=== PATIENT | male | born 1965 | race Caucasian/White ===

== ENCOUNTER 2017-05-16 08:57 | Outpatient (CLI) | payer BC ==
--- NOTE | 2017-05-16 14:02 | RAD ---
DOUBLE CONTRAST ESOPHAGRAM: Date: 05/16/17 INDICATION: History of dysphagia, R13.10. TECHNIQUE: Thin barium, thick barium, and effervescent crystals were utilized for a double esophagram. Total flu oroscopic time was 1.4 minutes. Total exposure of 19.325 Gy*cm^2. FINDINGS: No definite intraluminal mucosal abnormality is evident. No ulcerations are evident. No stricture is demonstrated. There are a few tertiary contractions involving the distal esophagus. There was a singl e episode of mild gastroesophageal reflux noted with the patient supine to the level of the lower tho racic spine. No additional reflux episodes were detected with Valsalva maneuvers. The visualized noel nellie fundus appears within normal limits. The 12.5 mm barium tablet passed without difficulty. No hiat al hernia was seen. IMPRESSION: 1. Mild gastroesophageal reflux. 2. Mild tertiary contractions of the mid to distal esophagus can be seen with esophagitis. 3. No definite intraluminal esophageal mucosal abnormality or stricture is identified. POS: KJ
== END 2017-05-16 08:58 | disposition home or self-care (01) ==
LOC: RAD 08:57
PROVIDERS: ATTEND Specialist
DX: R13.10 Dysphagia, unspecified (principal); K21.0 Gastro-esophageal reflux disease with esophagitis
CPT/HCPCS: 74220

== ENCOUNTER 2019-02-12 15:44 | Outpatient (CLI) | payer BC ==
--- NOTE | 2019-02-12 16:36 | MRI ---
MRI lumbar spine noncontrast HISTORY: Low back pain. Left leg radiculopathy. Findings: Radiographs not available for direct correlation. Transitional vertebra is present at the l umbosacral junction and, for the purposes of this exam, will be designated as the first sacral level. This places the normal-appearing conus medullaris at L1. Vertebral body heights and alignment are maintained. Mild discogenic endplate changes are within the bone marrow. Sacroiliac joints are not included. T12-L1, L1-2, L2-3: Osteophytosis of the facets. No significant central canal or foraminal stenosis. L3-4: Thecal sac is patent. Prominent osseous hypertrophy of the facets. There is moderate right and moderate to severe left foraminal stenoses. L4-5: Mild posterior disc bulge. Degenerative changes of the facets and posterior ligamentous thicken ing. Mild stenosis of the central canal. Mild stenosis of each neural foramen. L5-S1: Minimal disc bulge. Prominent posterior ligamentous thickening and facet joint hypertrophy. Mo derate stenosis of the central canal. Moderate right and severe left foraminal stenoses. IMPRESSION: Degenerative changes lower lumbar spine as detailed above, with stenoses greatest at the left neural foramina at the lumbosacral junction and the L3-4 level. Clinical correlation regarding the left L5 dermatome is required.
--- NOTE | 2019-02-12 16:52 | RAD ---
Exam: 2 views lumbar spine HISTORY: Sacroiliac inflammation. FINDINGS: 5 lumbar type vertebra. Lumbar spine vertebral body height is maintained. No fracture. No s pondylolisthesis or spondylolysis. Preservation of disc space heights. IMPRESSION: Unremarkable 2 view lumbar spine radiograph.
== END 2019-02-12 15:45 | disposition home or self-care (01) ==
LOC: TBSIIMAG 15:44
PROVIDERS: ATTEND Family Medicine
DX: M46.1 Sacroiliitis, not elsewhere classified (principal); M54.32 Sciatica, left side; M47.816 Spondylosis without myelopathy or radiculopathy, lumbar region; M48.061 Spinal stenosis, lumbar region without neurogenic claudication
CPT/HCPCS: 72100; 72148

== ENCOUNTER 2019-05-01 10:29 | Emergency (ER) | payer BC ==
--- NOTE | 2019-05-01 11:50 | RAD ---
XR Foot Rt 3 View STANDARD HISTORY: Injury, right foot pain FINDINGS: There are minimally displaced fractures involving the base of the fifth metatarsal.
--- NOTE | 2019-05-01 12:00 | RAD ---
XR Ankle Rt 3 View STANDARD HISTORY: Injury, right ankle pain FINDINGS: No dislocation is identified. The ankle mortise is maintained. There is a fracture involving the base of the fifth metatarsal.
== END 2019-05-01 12:36 | disposition home or self-care (01) ==
LOC: ERS 10:29
DX: S92.351A Displaced fracture of fifth metatarsal bone, right foot, initial encounter for closed fracture (principal); I10 Essential (primary) hypertension; E78.5 Hyperlipidemia, unspecified; M10.9 Gout, unspecified; F32.9 Major depressive disorder, single episode, unspecified; Z79.899 Other long term (current) drug therapy; W19.XXXA Unspecified fall, initial encounter

== ENCOUNTER 2019-06-11 13:19 | Outpatient (CLI) | payer BC | END 2019-06-11 13:20 | disposition home or self-care (01) | LOC: TBSI PT 13:19 | PROVIDERS: ATTEND Neurological Surgery | DX: M48.062 Spinal stenosis, lumbar region with neurogenic claudication (principal) ==

== ENCOUNTER 2019-07-31 13:28 | Outpatient (CLI) | payer BC, OTHER ==
[2019-08-01 15:47] LABS: Hemoglobin 15.5 g/dL (14.0-18.0); Mean Corpuscular HGB CONC 33.6 g/dL (32.0-36.0); Mean Corpuscular Hemoglobin 32.2 pg (27.0-31.0); Mean Corpuscular Volume 95.7 fL (78.0-98.0); Mean Platelet Volume 11.5 fL (7.4-10.4); Platelet Count 184 thou/uL (130-400); RBC Distribution Width 11.7 % (11.5-14.5); Red Blood Cell (RBC) Count 4.83 mill/uL (4.70-6.10); White Blood Cell (WBC) Count 7.1 thou/uL (4.8-10.8)
[2019-08-01 16:08] LABS: Anion Gap 12 mmol/L (10-20); BUN (Urea Nitrogen) 17 mg/dL (8.4-25.7); Calc. Creatinine Clearance 0 mL/min (70-130); Calcium 9.7 mg/dL (7.8-10.44); Carbon Dioxide 26 mmol/L (22-29); Chloride 107 mmol/L (98-107); Estimated GFR-MDRD 81; Glucose 138 mg/dL (70-105); Sodium 141 mmol/L (136-145)
[2019-08-02 11:41] LABS: SARS-CoV-2 MS2 Positive; SARS-CoV-2 N Gene Negative; SARS-CoV-2 S Gene Negative; SARS-CoV-2 orf1ab Negative
--- NOTE | 2019-08-04 16:17 | EKG ---
Test Reason : Blood Pressure : / mmHG Vent. Rate : 071 BPM Atrial Rate : 071 BPM P-R Int : 166 ms QRS Dur : 102 ms QT Int : 386 ms P-R-T Axes : 051 -13 065 degrees QTc Int : 419 ms Normal sinus rhythm Normal ECG When compared with ECG of 15-JAN-2008 06:46, Nonspecific T wave abnormality no longer evident in Inferior leads Confirmed by MICHELLE BUITRAGO (2) on 08/04/2019 4:16:33 PM Referred By: JAKE Confirmed By:MICHELLE BUITRAGO
== END 2019-07-31 13:29 | disposition home or self-care (01) ==
LOC: LABBT 13:28
PROVIDERS: ATTEND Neurological Surgery
DX: Z01.818 Encounter for other preprocedural examination (principal); Z11.59 Encounter for screening for other viral diseases; M48.062 Spinal stenosis, lumbar region with neurogenic claudication
CPT/HCPCS: 80048; 85027; 87635; 93005; 93010; U0003

== ENCOUNTER 2019-08-05 07:29 | Day surgery (SDC) | payer BC ==
[2019-08-01 13:06] VITALS: BMI 34.8
[2019-08-05] MEDS ORDERED: Fentanyl 100 MCG/2 ML VIAL ONE ×3 (09:43→11:52)
[2019-08-05] MEDS ORDERED: Lidocaine 2% Jelly 5 ML TUBE ONE (09:43)
[2019-08-05] MEDS ORDERED: PHENYLEPHRINE-NS 100 MCG/ML 10 ML SYRINGE ONE (10:57)
[2019-08-05] MEDS ORDERED: Rocuronium Bromide 10 MG/ML (10ML VIAL) ONE (10:57)
[2019-08-05] MEDS ORDERED: Ondansetron PF 4 MG/2 ML Vial ONE (10:57)
[2019-08-05] MEDS ORDERED: EPHEDRINE 25 MG/5 ML SYRINGE ONE (10:57)
[2019-08-05] MEDS ORDERED: Dexamethasone 20 MG/5 ML VIAL ONE (10:57)
[2019-08-05] MEDS ORDERED: PROPOFOL 200 MG/20 ML VIAL ONE (10:57)
[2019-08-05] MEDS ORDERED: Ketorolac Tromethamine 30 MG/ML VIAL ONE (10:57)
[2019-08-05] MEDS ORDERED: Lidocaine 1% PF 5 ML VIAL ONE (10:57)
[2019-08-05] MEDS ORDERED: Succinylcholine Chloride 20 MG/ML 10 ml SYRINGE FS ONE (10:57)
[2019-08-05] MEDS ORDERED: Glycopyrrolate 0.2 MG/ML 5 ML SYRINGE ONE ×2 (10:57)
--- NOTE | 2019-08-05 13:07 | OP ---
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 DESCRIPTION OF PROCEDURE: The patient was brought to the operating room and intubated. He was rolled in a prone position on gel-filled chest rolls. An incision was made exposing L5 and S1 and the level was confirmed by x-ray. We performed complete S1 and inferior L5 laminectomies completely decompressing the neural elements. There was adhesion in the region of the dura at right L5-S1 with some CSF emanating through this, that was reinforced with Gelfoam. The wound was then extensively irrigated, MAC hemostasis was secured. Vancomycin powder was applied and the wound was closed in anatomic layers. Job ID: [id number]
[2019-08-05] MEDS ORDERED: HYDROcodone/Acetaminophen 5/325 mg Tablet ONE (13:17)
== END 2019-08-05 15:05 | disposition home or self-care (01) ==
LOC: SDC 07:29
PROVIDERS: ATTEND Neurological Surgery
PROC: 0ST20ZZ Resection of Lumbar Vertebral Disc, Open Approach (ICD-10-PCS; principal; 2019-08-05)
DX: M48.061 Spinal stenosis, lumbar region without neurogenic claudication (principal)
CPT/HCPCS: 76000; J0690; J1100; J1885; J2001; J2405; J2704; J3010; J3370

== ENCOUNTER 2019-12-17 14:25 | Outpatient (CLI) | payer BC ==
--- NOTE | 2019-12-17 15:02 | RAD ---
Lumbar spine 3 views: 12/17/2019 COMPARISON: None HISTORY: Right sided low back pain FINDINGS: Lumbar pedicles are intact on the frontal imaging. At T10-11 and T11-12 there is disc space narrowing with degenerative endplate change and anterior osteophyte formation. Multilevel lower lumbar spine facet hypertrophy present, most prominent at the L4-5 and L5-S1 levels. No acute osseous abnormality. No anterolisthesis or retrolisthesis. Lower lumbar spine laminectomy changes are present. IMPRESSION: Degenerative change as above.
--- NOTE | 2019-12-17 15:16 | RAD ---
Exam: 3 views sacrum and coccyx. HISTORY: Pain. FINDINGS: Visualized sacral ala are preserved. Symmetric SI joints No evidence of fracture IMPRESSION: No radiographic abnormality. Additional imaging if clinically warranted.
== END 2019-12-17 14:26 | disposition home or self-care (01) ==
LOC: TBSIIMAG 14:25
PROVIDERS: ATTEND Neurological Surgery
DX: M54.5 Low back pain (principal); M47.816 Spondylosis without myelopathy or radiculopathy, lumbar region
CPT/HCPCS: 72100; 72220

== ENCOUNTER 2020-06-11 07:18 | Outpatient (CLI) | payer BC | END 2020-06-11 07:19 | disposition home or self-care (01) | LOC: BICMRI 07:18 | PROVIDERS: ATTEND Anesthesiology Pain Medicine | DX: M47.26 Other spondylosis with radiculopathy, lumbar region (principal); Z98.890 Other specified postprocedural states | CPT/HCPCS: 72148 ==

== ENCOUNTER 2020-08-12 05:05 | Emergency (ER) | payer BC ==
[2020-08-12] MEDS ORDERED: Ondansetron PF 4 MG/2 ML Vial ONE (05:19)
[2020-08-12] MEDS ORDERED: Ketorolac Tromethamine 30 MG/ML VIAL ONE ×2 (05:19→06:00)
[2020-08-12 05:27] LABS: #Eosinphils 0.1 thou/uL (0.0-0.7); #Lymphocytes 2.3 thou/uL (1.20-3.40); #Monocytes 0.5 thou/uL (0.11-0.59); #Neutrophils 11.1 thou/uL (1.40-6.50); %Basophils 0.1 % (0.0-1.0); %Eosinophils 0.4 % (0.0-10.0); %Lymphocytes 16.1 % (21.0-51.0); %Monocytes 3.8 % (0.0-10.0); %Neutrophils 79.5 % (42.0-75.0); Mean Corpuscular HGB CONC 33.6 g/dL (32.0-36.0); Mean Corpuscular Hemoglobin 32.7 pg (27.0-31.0); Mean Corpuscular Volume 97.1 fL (78.0-98.0); Mean Platelet Volume 10.1 fL (7.4-10.4); Platelet Count 200 thou/uL (130-400); RBC Distribution Width 11.6 % (11.5-14.5); Red Blood Cell (RBC) Count 4.59 mill/uL (4.70-6.10)
[2020-08-12 06:18] LABS: Bilirubin Negative (Negative); Blood, Urine 3+ (Negative); Clarity Clear (Clear); Glucose, Urine (Dipstick) Normal (Negative); Ketone, Urine 10 mg/dL (Negative); Leukocyte Negative Leu/uL (Negative); Mucous/LPF Rare LPF (<2+); Nitrite Negative (Negative); Protein, Urine (Dipstick) 30 mg/dL (Neg-Trace); RBC/HPF 21-50 HPF (0-3); Squamous Epithelial None Seen HPF (0-3); Urobilinogen Normal mg/dL (Less than 2); WBC/HPF 0-3 HPF (0-3)
[2020-08-12 06:19] LABS: Bacteria/HPF 1+ HPF (None Seen)
[2020-08-12 06:34] LABS: ALT (SGPT) 42 U/L (8-55); AST (SGOT) 27 U/L (5-34); Albumin 4.7 g/dL (3.5-5.0); Alkaline Phosphatase 110 U/L (40-110); Anion Gap 20 mmol/L (10-20); BUN (Urea Nitrogen) 25 mg/dL (8.4-25.7); Bilirubin, Total 0.5 mg/dL (0.2-1.2); Calc. Creatinine Clearance 0 mL/min (70-130); Calcium 10.1 mg/dL (7.8-10.44); Carbon Dioxide 19 mmol/L (22-29); Chloride 106 mmol/L (98-107); Globulin 2.9 g/dL (2.4-3.5); Glucose 147 mg/dL (70-105); Potassium 3.8 mmol/L (3.5-5.1); Protein, Total 7.6 g/dL (6.0-8.3); Sodium 141 mmol/L (136-145)
== END 2020-08-12 06:41 | disposition home or self-care (01) ==
LOC: ERS 05:05
DX: N13.2 Hydronephrosis with renal and ureteral calculous obstruction (principal); E78.5 Hyperlipidemia, unspecified; I10 Essential (primary) hypertension; M10.9 Gout, unspecified; Z79.899 Other long term (current) drug therapy
CPT/HCPCS: 36415; 74176; 80053; 81003; 81015; 85025; 96374; 96375; 96376; J1885; J2405

== ENCOUNTER 2020-11-13 10:31 | Outpatient (CLI) | payer BC | END 2020-11-13 10:32 | disposition home or self-care (01) | LOC: TBSIIMAG 10:31 | PROVIDERS: ATTEND Anesthesiology Pain Medicine | DX: M50.122 Cervical disc disorder at C5-C6 level with radiculopathy (principal); M47.22 Other spondylosis with radiculopathy, cervical region; M48.02 Spinal stenosis, cervical region | CPT/HCPCS: 72141 ==

== ENCOUNTER 2021-08-29 10:11 | Emergency (ER) | payer BC ==
[2021-08-29 10:45] LABS: #Eosinphils 0.1 thou/uL (0.0-0.7); #Monocytes 0.6 thou/uL (0.11-0.59); #Neutrophils 4.2 thou/uL (1.40-6.50); %Basophils 0.1 % (0.0-1.0); %Eosinophils 0.8 % (0.0-10.0); %Lymphocytes 38.5 % (21.0-51.0); %Neutrophils 52.6 % (42.0-75.0); Hemoglobin 14.3 g/dL (14.0-18.0); Mean Corpuscular HGB CONC 34.7 g/dL (32.0-36.0); Mean Corpuscular Hemoglobin 33.2 pg (27.0-31.0); Mean Corpuscular Volume 95.7 fL (78.0-98.0); Mean Platelet Volume 9.2 fL (7.4-10.4); Platelet Count 208 thou/uL (130-400); RBC Distribution Width 12.8 % (11.5-14.5); Red Blood Cell (RBC) Count 4.29 mill/uL (4.70-6.10); White Blood Cell (WBC) Count 7.9 thou/uL (4.8-10.8)
[2021-08-29 11:06] LABS: ALT (SGPT) 42 U/L (8-55); AST (SGOT) 27 U/L (5-34); Albumin 4.5 g/dL (3.5-5.0); Alkaline Phosphatase 90 U/L (40-110); Anion Gap 17 mmol/L (10-20); BUN (Urea Nitrogen) 17 mg/dL (8.4-25.7); Bilirubin, Total 0.9 mg/dL (0.2-1.2); Calc. Creatinine Clearance 0 mL/min (70-130); Calcium 9.5 mg/dL (7.8-10.44); Carbon Dioxide 22 mmol/L (22-29); Chloride 107 mmol/L (98-107); Globulin 2.9 g/dL (2.4-3.5); Glucose 136 mg/dL (70-105); Lipase 26 U/L (8-78); Potassium 3.8 mmol/L (3.5-5.1); Protein, Total 7.4 g/dL (6.0-8.3); Sodium 142 mmol/L (136-145)
[2021-08-29 11:11] LABS: CK (CPK) 99 U/L (30-200)
[2021-08-29 12:34] LABS: Bilirubin Negative (Negative); Blood, Urine Negative (Negative); Clarity Clear (Clear); Glucose, Urine (Dipstick) Normal (Negative); Ketone, Urine Negative (Negative); Leukocyte Negative Leu/uL (Negative); Nitrite Negative (Negative); Protein, Urine (Dipstick) 10 mg/dL (Neg-Trace); Specific Gravity, Urine 1.015 (1.002-1.036); Urobilinogen Normal mg/dL (Less than 2); pH, Urine 7.5 (5.0-9.0)
== END 2021-08-29 13:19 | disposition home or self-care (01) ==
LOC: ERS 10:11
DX: R55 Syncope and collapse (principal); M10.9 Gout, unspecified; E78.5 Hyperlipidemia, unspecified; I10 Essential (primary) hypertension
CPT/HCPCS: 71045; 80053; 81003; 82550; 83690; 83735; 84484; 85025; 93005; 94760; 96360; 96361

== ENCOUNTER 2021-11-16 07:43 | Outpatient (CLI) | payer BC | END 2021-11-16 07:44 | disposition home or self-care (01) | LOC: TBSIIMAG 07:43 | PROVIDERS: ATTEND Anesthesiology Pain Medicine | DX: M47.26 Other spondylosis with radiculopathy, lumbar region (principal); M47.27 Other spondylosis with radiculopathy, lumbosacral region; M51.16 Intervertebral disc disorders with radiculopathy, lumbar region; M48.061 Spinal stenosis, lumbar region without neurogenic claudication; M43.17 Spondylolisthesis, lumbosacral region; M48.07 Spinal stenosis, lumbosacral region; M71.38 Other bursal cyst, other site; N28.1 Cyst of kidney, acquired; Z98.890 Other specified postprocedural states | CPT/HCPCS: 72148 ==

== ENCOUNTER 2022-02-21 05:51 | Day surgery (SDC) | payer BC ==
[2022-02-16 13:46] VITALS: BMI 33.5
[2022-02-21] MEDS ORDERED: Famotidine/PF 20 mg/2ml Vial ONE (07:11)
[2022-02-21] MEDS ORDERED: Midazolam HCl 2 mg/2 ml Vial ONE (07:11)
[2022-02-21] MEDS ORDERED: Sodium Chloride 0.9% 100 ML ONE (07:21)
[2022-02-21] MEDS ORDERED: CEFAZOLIN 2 GM VIAL ONE (07:21)
[2022-02-21] MEDS ORDERED: fentaNYL PF 100 MCG/2 ML SYRINGE ONE (07:25)
[2022-02-21] MEDS ORDERED: Dexamethasone 20 MG/5 ML VIAL ONE (07:33)
[2022-02-21] MEDS ORDERED: PROPOFOL 200 MG/20 ML VIAL ONE (07:33)
[2022-02-21] MEDS ORDERED: Phenylephrine 10 MG/ML VIAL ONE (07:33)
[2022-02-21] MEDS ORDERED: ePHEDrine 50 MG/ML VIAL ONE (07:33)
[2022-02-21] MEDS ORDERED: Ondansetron PF 4 MG/2 ML Vial ONE (07:33)
[2022-02-21] MEDS ORDERED: Glycopyrrolate 0.2 MG/ML 5 ML SYRINGE ONE (07:33)
[2022-02-21] MEDS ORDERED: NEOSTIGMINE 3 MG/3 ML SYR 3 MG/3 ML SYRINGE ONE (07:33)
[2022-02-21] MEDS ORDERED: Rocuronium Bromide 10 MG/ML (10ML VIAL) ONE (07:33)
[2022-02-21] MEDS ORDERED: Ketorolac Tromethamine 30 MG/ML VIAL ONE (07:33)
[2022-02-21] MEDS ORDERED: HYDROmorphone 0.5 MG/0.5 ML SYRINGE ONE ×2 (09:18→09:34)
[2022-02-21] MEDS ORDERED: FENTANYL 50 MCG/ML 1 ML VIAL ONE ×2 (09:23→10:09)
[2022-02-21] MEDS ORDERED: Tamsulosin HCl 0.4 MG CAP ONE (09:41)
[2022-02-21] MEDS ORDERED: Meperidine HCl/PF 25 MG/ML VIAL ONE (09:54)
[2022-02-21] MEDS ORDERED: HYDROcodone/Acetaminophen 5/325 mg Tablet ONE (10:41)
[2022-02-21] MEDS ORDERED: Morphine 4 MG/ML VIAL ONE (10:41)
== END 2022-02-21 14:42 | disposition home or self-care (01) ==
LOC: SDC 05:51
PROVIDERS: ATTEND Neurological Surgery
PROC: 0SG3071 Fusion of Lumbosacral Joint with Autologous Tissue Substitute, Posterior Approach, Posterior Column, Open Approach (ICD-10-PCS; principal; 2022-02-21)
DX: M54.16 Radiculopathy, lumbar region (principal); M48.061 Spinal stenosis, lumbar region without neurogenic claudication; Z79.899 Other long term (current) drug therapy; Z88.8 Allergy status to other drugs, medicaments and biological substances
CPT/HCPCS: C1713; C1768; C1776; J1100; J1170; J1885; J2175; J2250; J2270; J2370; J2405; J2704; J3010; J3370; J3490; S0028

== ENCOUNTER 2022-03-08 13:30 | Outpatient (CLI) | payer BC | END 2022-03-08 13:31 | disposition home or self-care (01) | LOC: TBSIIMAG 13:30 | PROVIDERS: ATTEND Neurological Surgery | DX: M47.26 Other spondylosis with radiculopathy, lumbar region (principal) | CPT/HCPCS: 72100 ==

== ENCOUNTER 2022-03-14 14:24 | Outpatient (CLI) | payer BC | END 2022-03-14 14:25 | disposition home or self-care (01) | LOC: BICCT 14:24 | PROVIDERS: ATTEND Neurological Surgery | DX: M51.16 Intervertebral disc disorders with radiculopathy, lumbar region (principal); M48.061 Spinal stenosis, lumbar region without neurogenic claudication; M51.17 Intervertebral disc disorders with radiculopathy, lumbosacral region; M48.07 Spinal stenosis, lumbosacral region | CPT/HCPCS: 72131 ==

== ENCOUNTER 2022-04-20 13:39 | Outpatient (CLI) | payer BC | END 2022-04-20 13:40 | disposition home or self-care (01) | LOC: TBSIIMAG 13:39 | PROVIDERS: ATTEND Neurological Surgery | DX: M47.26 Other spondylosis with radiculopathy, lumbar region (principal); Z98.890 Other specified postprocedural states | CPT/HCPCS: 72100 ==

== ENCOUNTER 2022-07-19 13:29 | Outpatient (CLI) | payer BC | END 2022-07-19 13:30 | disposition home or self-care (01) | LOC: TBSIIMAG 13:29 | PROVIDERS: ATTEND Neurological Surgery | DX: M47.26 Other spondylosis with radiculopathy, lumbar region (principal); Z98.890 Other specified postprocedural states | CPT/HCPCS: 72100 ==